=== PATIENT | female | born 1970 | race African-American/Black ===

== ENCOUNTER 2017-11-10 10:28 | Emergency (ER) | payer MEDICAID ==
[~2017-11-10] VITALS: Ht 172.7 cm; Wt 109.0 kg
[~2017-11-10 10:28] MED LIST: CLON1TAB5 PO; FLEXERYL; LORA10CA MT; LURA120T MT; LURA120T PO; MULT-1146 MT; PHEN100C4 PO; TOPA200 PO; VALA500T MT; VIT D; VIT E; [UNRECOGNIZED DRUG - CODE] MT
[2017-11-10] MEDS ORDERED: KETOROLAC 15MG/ML VIAL IM ONE (12:15)
[2017-11-10] MEDS ORDERED: LORAZEPAM 1MG TABLET PO ONE (12:30)
[2017-11-10 12:41] VITALS: BP 164/99
[2017-11-10] MEDS ORDERED: MORPHINE SULFATE 2 MG/ML CPJ (NOT FOR IM USE) IV ONE (16:15)
== END 2017-11-10 18:24 | disposition home or self-care (01) ==
LOC: ER 10:28
DX: G89.29 Other chronic pain (principal); M54.5 Low back pain; R32 Unspecified urinary incontinence; Z88.5 Allergy status to narcotic agent; Z79.899 Other long term (current) drug therapy; G40.909 Epilepsy, unspecified, not intractable, without status epilepticus
CPT/HCPCS: 72148; 96372; 99284; J1885

== ENCOUNTER 2018-12-22 03:03 | Emergency (ER) | payer MEDICAID ==
[~2018-12-22] VITALS: Ht 170.2 cm; Wt 132.0 kg
[~2018-12-22 03:03] MED LIST changes: +CLON1TAB12 PO; -CLON1TAB5 PO
[2018-12-22] MEDS ORDERED: SODIUM CHLORIDE 0.9% 1,000 ML IV ONE (03:40)
[2018-12-22 03:53] LABS: CLARITY URINE CLEAR (CLEAR); COLOR URINE YELLOW (YELLOW); KETONES URINE NEGATIVE (NEGATIVE); LEUKOCYTE ESTERASE URINE NEGATIVE (NEGATIVE); NITRITE URINE NEGATIVE (NEGATIVE); OCCULT BLOOD URINE NEGATIVE (NEGATIVE); PH URINE 5.5 (4.5-8.0); PROTEIN URINE NEGATIVE (NEGATIVE); SPECIFIC GRAVITY URINE 1.003 (1.005-1.030); UROBILINOGEN URINE 0.2 E.U./dL (0.2-1.0)
[2018-12-22] MEDS ORDERED: DIPHENHYDRAMINE 25MG CAPSULE PO ONE ×2 (04:15→06:30)
[2018-12-22 04:21] LABS: BASOPHILS % 0.5 % (0.0-2.0); EOSINOPHILS % 1.4 % (0.0-5.0); HEMATOCRIT. 40.2 % (36.0-48.0); HEMOGLOBIN. 13.2 g/dL (12.0-16.0); LYMPHOCYTES % 16.9 % (20.0-50.0); MEAN CORPUSCULAR HEMOGLOBIN 29.3 pg (28.0-32.0); MEAN PLATELET VOLUME 7.9 fl (7.4-10.4); MONOCYTES % 7.8 % (2.0-8.0); NEUTROPHILS % 73.4 % (40.0-76.0); PLATELET 245 x1000/uL (130-400); RED BLOOD CELL COUNT 4.52 mill/uL (4.2-5.4); RED CELL DISTRIBUTION WIDTH 13.5 % (11.6-14.6)
[2018-12-22 04:25] LABS: CHLORIDE 110 mEq/L (98-107)
[2018-12-22 04:28] LABS: *AMPHETAMINES SCREEN URINE NEGATIVE (NEGATIVE); *BARBITURATES SCREEN URINE NEGATIVE (NEGATIVE); *BENZODIAZEPINES SCREEN URINE NEGATIVE (NEGATIVE); *COCAINE SCREEN URINE NEGATIVE (NEGATIVE)
[2018-12-22 04:29] LABS: ETHANOL BLOOD < 10 mg/dL
[2018-12-22 04:29] LABS: CANNABINOID URINE SCREEN NEGATIVE (NEGATIVE); METHADONE URINE SCREEN NEGATIVE (NEGATIVE); OPIATES URINE SCREEN NEGATIVE (NEGATIVE); PHENCYCLIDINE URINE SCREEN NEGATIVE (NEGATIVE)
[2018-12-22 12:20] VITALS: BP 154/90
== END 2018-12-22 12:29 | disposition home or self-care (01) ==
LOC: ER 03:32
DX: T50.901A Poisoning by unspecified drugs, medicaments and biological substances, accidental (unintentional), initial encounter (principal); L29.9 Pruritus, unspecified; F41.9 Anxiety disorder, unspecified; F31.9 Bipolar disorder, unspecified; Z88.6 Allergy status to analgesic agent; Z79.899 Other long term (current) drug therapy; Y92.89 Other specified places as the place of occurrence of the external cause
CPT/HCPCS: 36415; 80053; 80305; 80307; 80320; 80329; 81003; 81025; 82140; 85025; 93005; 99283; J7030; Q0163; G0480